=== PATIENT | male | born 1990 | race Asian ===

== ENCOUNTER 2019-04-19 21:26 | Emergency (ER) | payer MEDICAID, OTHER ==
[~2019-04-19] VITALS: Ht 167.6 cm; Wt 138.6 kg
[~2019-04-19 21:26] MED LIST: AMOX500C2 PO; AMOX875T2 PO; IBUP-1051 PO; NO HOME MEDS
[2019-04-19 22:39] LABS: BASOPHILS # (AUTO) 0.1 X10'3 (0-0.2); BASOPHILS % (AUTO) 0.5 % (0-1); EOSINOPHILS # (AUTO) 0.2 X10'3 (0-0.9); EOSINOPHILS % (AUTO) 1.6 % (0-6); HEMATOCRIT 45.3 % (42.0-52.0); HEMOGLOBIN 15.5 g/dl (14.0-17.9); LYMPHOCYTES # (AUTO) 2.1 X10'3 (1.1-4.8); LYMPHOCYTES % (AUTO) 13.8 % (21-51); MEAN CORPUSCULAR HEMOGLOBIN 28.2 PG (27.0-31.0); MEAN CORPUSCULAR HGB CONC 34.2 g/dL (33.0-36.5); MEAN CORPUSCULAR VOLUME 82.4 FL (78-98); MEAN PLATELET VOLUME 9.2 FL (7.4-10.4); MONOCYTES # (AUTO) 1.1 X10'3 (0-0.9); MONOCYTES % (AUTO) 7.1 % (2-12); NEUTROPHILS # (AUTO) 11.6 X10'3 (1.8-7.7); PLATELET COUNT 364 X10'3 (140-440); RED CELL DISTRIBUTION WIDTH 14.4 % (11.5-14.5); WHITE BLOOD COUNT 15.1 X10'3 (4.5-11.0)
[2019-04-19 22:52] LABS: ALANINE AMINOTRANSFERASE 52 U/L (12-78); ALBUMIN 3.8 G/DL (3.4-5.0); ALBUMIN/GLOBULIN RATIO 0.7 (1.1-1.5); ALKALINE PHOSPHATASE 59 IU/L (46-116); ANION GAP 9 (8-16); ASPARTATE AMINO TRANSFERASE 35 U/L (10-37); BILIRUBIN,TOTAL 0.6 MG/DL (0.1-1.0); BLOOD UREA NITROGEN 11 MG/DL (7-18); BUN/CREATININE RATIO 11.3 (5.4-32.0); CALCIUM 8.9 MG/DL (8.5-10.1); CHLORIDE 104 MMOL/L (99-107); CREATININE 0.97 MG/DL (0.60-1.10); GLUCOSE 103 MG/DL (70-104); POTASSIUM 3.1 MMOL/L (3.5-5.1); SODIUM 142 MMOL/L (135-145); TOTAL CARBON DIOXIDE 28.6 MMOL/L (24-32); TOTAL PROTEIN 9.2 G/DL (6.4-8.2); eGFR > 90 ML/MIN
--- NOTE | 2019-04-19 23:03 | NUR ---
Pt c/o c/p. His lungs are clear and S1 S2 regular. He smells of marijuana. He says he smokes marijuana and cigarettes. Denies leg swelling/pain and no recent travel. VSS Sinus rhythm. Gilbert. Gave pt water per his request and encouraged all looks good right now/to await lab results. His eyes are blood shot and 1/2 open. He is very intoxicated with marijuana currently.
[2019-04-20] MEDS ORDERED: LIDOcaine Viscous 15ml cup MM STA (01:03)
[2019-04-20] MEDS ORDERED: ondansetron/PF 4mg/2ml inj IV ONE (01:05)
[2019-04-20] MEDS ORDERED: pantoprazole 40 MG vial IV ONE (01:05)
[2019-04-20] MEDS ORDERED: ondansetron 4mg rapidly disintigrating tab PO ONE (01:45)
[2019-04-20] MEDS ORDERED: pantoprazole 40mg Tablet.DR PO ONE (01:50)
[2019-04-20 02:38] VITALS: BP 156/102
[2019-04-20] MEDS ORDERED: pantoprazole 40mg Tablet.DR PO SCH (07:30)
== END 2019-04-20 02:35 | disposition home or self-care (01) ==
LOC: ER 21:26
DX: K52.9 Noninfective gastroenteritis and colitis, unspecified (principal); R07.89 Other chest pain; Z56.0 Unemployment, unspecified; Z79.899 Other long term (current) drug therapy
CPT/HCPCS: 36415; 71046; 80053; 84145; 84484; 85025; 93005; 99284

== ENCOUNTER 2020-09-17 07:00 | Emergency (ER) | payer MEDICAID ==
[~2020-09-17] VITALS: Ht 167.6 cm; Wt 106.0 kg
[2020-09-17] MEDS ORDERED: ondansetron/PF 4mg/2ml inj IV ONE (07:45)
[2020-09-17] MEDS ORDERED: normal saline 1000ml 1,000 ML IV ONE ×2 (07:45→08:45)
[2020-09-17] MEDS ORDERED: morphine 4 MG/ML inj SYRINge IV ONE (07:45)
[2020-09-17] MEDS ORDERED: ketorolac trometh. 30mg/ml inj. IV ONE (07:45)
[2020-09-17 08:13] LABS: BASOPHILS % (AUTO) 0.4 % (0-1); EOSINOPHILS # (AUTO) 0.1 X10'3 (0-0.9); EOSINOPHILS % (AUTO) 1.3 % (0-6); HEMATOCRIT 44.3 % (42.0-52.0); HEMOGLOBIN 15.2 g/dl (14.0-17.9); LYMPHOCYTES # (AUTO) 1.7 X10'3 (1.1-4.8); LYMPHOCYTES % (AUTO) 16.4 % (21-51); MEAN CORPUSCULAR HEMOGLOBIN 28.4 PG (27.0-31.0); MEAN CORPUSCULAR HGB CONC 34.3 g/dL (33.0-36.5); MEAN CORPUSCULAR VOLUME 82.7 FL (78-98); MONOCYTES # (AUTO) 0.7 X10'3 (0-0.9); MONOCYTES % (AUTO) 6.6 % (2-12); NEUTROPHILS # (AUTO) 7.7 X10'3 (1.8-7.7); NEUTROPHILS % (AUTO) 75.3 % (42-75); PLATELET COUNT 303 X10'3 (140-440); RED BLOOD COUNT 5.36 X10'6 (4.70-6.10); RED CELL DISTRIBUTION WIDTH 13.7 % (11.5-14.5); WHITE BLOOD COUNT 10.2 X10'3 (4.5-11.0)
[2020-09-17] MEDS ORDERED: famotidine/PF 10 mg/ml inj IV ONE (08:20)
[2020-09-17] MEDS ORDERED: pantoprazole 40 MG vial IV ONE (08:20)
[2020-09-17 08:27] LABS: ALANINE AMINOTRANSFERASE 30 U/L (12-78); ALBUMIN 4.2 G/DL (3.4-5.0); ALBUMIN/GLOBULIN RATIO 0.9 (1.1-1.5); ALKALINE PHOSPHATASE 56 IU/L (46-116); AMYLASE 72 U/L (25-115); ANION GAP 17 (8-16); ASPARTATE AMINO TRANSFERASE 20 U/L (10-37); BILIRUBIN,TOTAL 0.9 MG/DL (0.1-1.0); BLOOD UREA NITROGEN 14 MG/DL (7-18); BUN/CREATININE RATIO 13.6 (5.4-32.0); CALCIUM 9.6 MG/DL (8.5-10.1); CHLORIDE 106 MMOL/L (99-107); CREATININE 1.03 MG/DL (0.60-1.10); GLUCOSE 114 MG/DL (70-104); LIPASE < 50 U/L (73-393); SODIUM 143 MMOL/L (135-145); TOTAL CARBON DIOXIDE 20.2 MMOL/L (24-32); TOTAL PROTEIN 9.1 G/DL (6.4-8.2); eGFR 85 ML/MIN
[2020-09-17] MEDS ORDERED: potassium Cl 20 mEq SR tablet PO STA (08:43)
[2020-09-17] MEDS ORDERED: LIDOcaine Viscous 15ml cup MM ONE (09:05)
[2020-09-17] MEDS ORDERED: mag hydrox/Alum hydrox/simeth 30ml oral suspension PO ONE (09:05)
[2020-09-17] MEDS ORDERED: bisacodyl 5mg tablet.DR PO ONE (09:45)
[2020-09-17 11:28] LABS: CLARITY,URINE CLOUDY (Clear); COLOR,URINE YELLOW (Yellow); GLUCOSE, URINE NEGATIVE (Neg); KETONES,URINE >=80 mg/dl (Neg); LEUKOCYTE ESTERASE ,URINE NEGATIVE (Neg); NITRITES, URINE NEGATIVE (Neg); OCCULT BLOOD,URINE NEGATIVE (Neg); PH,URINE 6.5 (4.8-8.0); PROTEIN,URINE 30 mg/dl (Neg)
[2020-09-17 11:37] LABS: UA COLLECTION TYPE VOIDED
[2020-09-17 11:38] LABS: MUCUS STRANDS MANY /LPF (Neg)
[2020-09-17 11:39] LABS: BACTERIA,URINE FEW /HPF (Neg); RBC,URINE 0-2 /HPF (0-2)
[2020-09-17 11:40] LABS: SQUAMOUS EPITHELIAL CELL,UR FEW /LPF (FEW)
[2020-09-17 11:41] VITALS: BP 120/65
[2020-09-17] MEDS ORDERED: ONDA4TAB6 PO (11:46)
[2020-09-17] MEDS ORDERED: POLY17PO10 PO (11:46)
[2020-09-17] MEDS ORDERED: POTA20TA19 PO (11:46)
[2020-09-17] MEDS ORDERED: BISA-78 PO (11:46)
[2020-09-17] MEDS ORDERED: PANT-47 PO (11:46)
== END 2020-09-17 12:01 | disposition home or self-care (01) ==
LOC: ER 07:01
DX: R10.32 Left lower quadrant pain (principal); K59.00 Constipation, unspecified; E87.6 Hypokalemia; E86.0 Dehydration; Z56.0 Unemployment, unspecified; Z79.2 Long term (current) use of antibiotics; Z79.899 Other long term (current) drug therapy
CPT/HCPCS: 36415; 80053; 81001; 82150; 83690; 84145; 85025; 87088; 96361; 96374; 96375; 99284; C9113; J1885; J2270; J2405; J3490; J7030